=== PATIENT | female | born 1985 | race Caucasian/White ===

== ENCOUNTER → 2016-11-29 | Outpatient (CLI) | payer OTHER | END | disposition home or self-care (01) | LOC: LABWHC1 10:33 | PROVIDERS: ATTEND Obstetrics & Gynecology | DX: Z34.90 Encounter for supervision of normal pregnancy, unspecified, unspecified trimester (principal); Z3A.00 Weeks of gestation of pregnancy not specified | CPT/HCPCS: 36415; 84702 ==

== ENCOUNTER → 2016-12-02 | Outpatient (CLI) | payer OTHER | END | disposition home or self-care (01) | LOC: LABWHC1 13:02 | PROVIDERS: ATTEND Obstetrics & Gynecology | DX: Z34.90 Encounter for supervision of normal pregnancy, unspecified, unspecified trimester (principal) | CPT/HCPCS: 36415; 84702 ==

== ENCOUNTER 2016-12-29 23:13 | Emergency (ER) | payer OTHER ==
[2016-12-29] MEDS ORDERED: SODIUM CHLORIDE 0.9% 1,000 ML IV STA (23:26)
--- NOTE | 2016-12-29 23:33 | ED ---
General Adult HPI - General Chief complaint: Vaginal Bleeding Stated complaint: vaginal bleeding/miscarriage Time Seen by Provider: 12/29/16 23:21 Source: patient, RN notes reviewed Mode of arrival: ambulatory Limitations: no limitations - History of Present Illness Initial comments: 31-year-old female presents to the ER with cc of heavy vaginal bleeding. Patient states she had an US on Monday and was informed she was having a miscarriage. Today she started to have heavy bleeding. Patient states she has been going through multiple pads an hour. She contacted her OBGYN and was referred here. Patient states she may have had some mild lightheadedness. . patient states that she is not currently having any other symptoms. Patient insists mild abdominal cramping.Patient denies any recent fever, chills, shortness of breath, chest pain, back pain, nausea vomiting, numbness or tingling, dysuria or hematuria, constipation or diarrhea, headaches or visual changes, or any other current symptoms. - Related Data Home Medications Medication Instructions Recorded Confirmed Pnv,Calcium 72/Iron/Folic Acid 1 tab PO DAILY 12/29/16 12/29/16 [ Plus Tablet] Allergies Allergy/AdvReac Type Severity Reaction Status Date / Time aztreonam [From Azactam] Allergy Rash/Hives Verified 12/29/16 23:34 ciprofloxacin [From Cipro] Allergy Rash/Hives Verified 12/29/16 23:34 ciprofloxacin HCl Allergy Rash/Hives Verified 12/29/16 23:34 [From Cipro] Review of Systems ROS Statement: Those systems with pertinent positive or pertinent negative responses have been documented in the HPI. ROS Other: All systems not noted in ROS Statement are negative. 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 Eye: Pupils are equal. Ears, nose, mouth and throat: There are moist mucous membranes. Neck: The neck is supple, there is no tenderness. Cardiovascular: There is a regular rate and rhythm. No murmur, rub or gallop is appreciated. Respiratory: Lungs are clear to auscultation, respirations are non-labored, breath sounds are equal. No wheezes, stridor, rales, or rhonchi. Gastrointestinal: Soft, non-distended, non-tender abdomen without masses or organomegaly noted. There is no rebound or guarding present. No CVA tenderness. Bowel sounds are unremarkable. Back: There is no tenderness to palpation in the midline. There is no obvious deformity. No rashes noted. Musculoskeletal: Normal ROM, no tenderness, There is no pedal edema. There is no calf tenderness or swelling. Sensation intact. Pulses equal bilaterally 2+. Neurological: CN II-XII intact, There are no obvious motor or sensory deficits. Coordination appears grossly intact. Speech is normal. Skin: Skin is warm and dry and no rashes or lesions are noted. Psychiatric: Cooperative, appropriate mood & affect, normal judgment. Limitations: no limitations External exam: Present: normal external exam Speculum exam: Present: cervical discharge (some noted in the cervical hours), vaginal bleeding (minimal). Absent: erythema, vaginal discharge, foreign body, laceration Course Vital Signs 12/29/16 23:15 Temperature 97.5 F L Pulse Rate 76 Respiratory 18 Rate Blood Pressure 122/69 O2 Sat by Pulse 100 Oximetry Medical Decision Making - Medical Decision Making 31-year-old female presents emergency department with a chief complaint of abdominal cramping and vaginal bleeding in pregnancyat this time patient's pelvic exam was reviewed and patient's bleeding has light in. Patient's orthostatics are negative as well as hemoglobin is stable. This time we discussed close follow-up with OB in the morning. Discussed return parameters all patient's questions. She stated that she understood and she is here with this plan. This time she'll be discharged home. - Lab Data Result diagrams: 12/29/16 23:48 12/29/16 23:48 Lab Results 12/29/16 12/29/16 12/29/16 Range/Units 23:48 23:48 23:48 WBC 12.0 H (3.8-10.6) k/uL RBC 4.10 (3.80-5.40) m/uL Hgb 12.7 (11.4-16.0) gm/dL Hct 37.0 (34.0-46.0) % MCV 90.2 (80.0-100.0) fL MCH 31.0 (25.0-35.0) pg MCHC 34.3 (31.0-37.0) g/dL RDW 13.7 (11.5-15.5) % Plt Count 293 (150-450) k/uL Neutrophils % 60 % Lymphocytes % 33 % Monocytes % 4 % Eosinophils % 2 % Basophils % 1 % Neutrophils # 7.2 (1.3-7.7) k/uL Lymphocytes # 3.9 (1.0-4.8) k/uL Monocytes # 0.4 (0-1.0) k/uL Eosinophils # 0.2 (0-0.7) k/uL Basophils # 0.1 (0-0.2) k/uL Sodium 143 (137-145) mmol/L Potassium 3.7 (3.5-5.1) mmol/L Chloride 107 (98-107) mmol/L Carbon Dioxide 22 (22-30) mmol/L Anion Gap 14 mmol/L BUN 14 (7-17) mg/dL Creatinine 0.80 (0.52-1.04) mg/dL Est GFR (MDRD) Af Amer >60 (>60 ml/min/1.73 sqM) Est GFR (MDRD) Non-Af >60 (>60 ml/min/1.73 sqM) Glucose 102 H (74-99) mg/dL Calcium 10.0 (8.4-10.2) mg/dL Total Bilirubin 0.5 (0.2-1.3) mg/dL AST 18 (14-36) U/L ALT 27 (9-52) U/L Alkaline Phosphatase 59 (38-126) U/L Total Protein 7.5 (6.3-8.2) g/dL Albumin 4.6 (3.5-5.0) g/dL Blood Type O Positive Blood Type Recheck No Disposition Clinical Impression: Threatened miscarriage Disposition: HOME SELF-CARE Condition: Stable Instructions: Miscarriage (ED) Additional Instructions: Please use medication as discussed. Please follow up with family doctor if symptoms have not improved over the next two days. Please return to the emergency room if your symptoms increase or worsen or for any other concerns. Referrals: Damián Mckeon MD [Primary Care Provider] - 1-2 days Time of Disposition: 00:28
[2016-12-30 00:02] LABS: Basophils # (A) 0.1 k/uL (0-0.2); Basophils % (A) 1 %; CH 31.9; CHCM 35.4; Eosinophils # (A) 0.2 k/uL (0-0.7); Eosinophils % (A) 2 %; HDW 2.55; HGB 12.7 gm/dL (11.4-16.0); Luc # (Auto) 0.16; Luc % (Auto) 1; Lymphocytes # (A) 3.9 k/uL (1.0-4.8); Lymphocytes % (A) 33 %; MCHC 34.3 g/dL (31.0-37.0); MCV 90.2 fL (80.0-100.0); Mean Platelet Volume 7.4; Monocytes # (A) 0.4 k/uL (0-1.0); Monocytes % (A) 4 %; Neutrophils # (A) 7.2 k/uL (1.3-7.7); Neutrophils % (A) 60 %; RDW 13.7 % (11.5-15.5); WBC (Perox) 11.78
[2016-12-30 00:14] LABS: ALT 27 U/L (9-52); AST 18 U/L (14-36); Alkaline Phosphatase 59 U/L (38-126); Anion Gap 14 mmol/L; Blood Urea Nitrogen 14 mg/dL (7-17); Carbon Dioxide 22 mmol/L (22-30); Chloride 107 mmol/L (98-107); Glucose 102 mg/dL (74-99); Non-African American GFR(MDRD) >60 (>60 ml/min/1.73 sqM); Potassium 3.7 mmol/L (3.5-5.1); Sodium 143 mmol/L (137-145); Total Bilirubin 0.5 mg/dL (0.2-1.3); Total Protein 7.5 g/dL (6.3-8.2)
[2016-12-30 00:29] LABS: HCG,Quantitative Serum 9193.1 mIU/mL
[2016-12-30 00:57] VITALS: BP 119/58; PULSE 75; RESP 18; TEMP 97.8
== END 2016-12-30 01:00 | disposition home or self-care (01) ==
LOC: EC 23:13
DX: O20.0 Threatened abortion (principal); Z88.1 Allergy status to other antibiotic agents; Z98.890 Other specified postprocedural states; Z3A.12 12 weeks gestation of pregnancy; Z79.899 Other long term (current) drug therapy
CPT/HCPCS: 36415; 80053; 84702; 85025; 86900; 86901; 96360; 99284

== ENCOUNTER 2018-08-26 22:36 | Inpatient (IN) | payer OTHER ==
[2018-08-26] MEDS ORDERED: LACTATED RINGERS 1,000 ML IV ONE (23:59)
[2018-08-26] MEDS ORDERED: ceFAZolin IN SWFI 2 GM/20 ML SYRINGE IVP ONE (23:59)
[2018-08-26] MEDS ORDERED: CITRIC ACID-SODIUM CITRATE 15 ML CUP PO ONE (23:59)
[2018-08-27 00:08] VITALS: BMI 35.7
[2018-08-27 00:21] LABS: Basophils % (A) 0 %; Eosinophils # (A) 0.2 k/uL (0-0.7); Eosinophils % (A) 1 %; HCT 39.4 % (34.0-46.0); HGB 13.2 gm/dL (11.4-16.0); Lymphocytes # (A) 3.3 k/uL (1.0-4.8); Lymphocytes % (A) 20 %; MCH 29.7 pg (25.0-35.0); MCHC 33.6 g/dL (31.0-37.0); MCV 88.5 fL (80.0-100.0); Mean Platelet Volume 7.8; Monocytes # (A) 0.6 k/uL (0-1.0); Monocytes % (A) 4 %; Neutrophils # (A) 11.8 k/uL (1.3-7.7); Neutrophils % (A) 73 %; Platelet Count 265 k/uL (150-450); RBC 4.45 m/uL (3.80-5.40); RDW 13.7 % (11.5-15.5); WBC 16.2 k/uL (3.8-10.6)
[2018-08-27] MEDS: LACTATED RINGERS 1,000 ML IV SCH ×5 (00:27→20:01)
--- NOTE | 2018-08-27 00:35 | P.HPOB ---
History of Present Illness H&P Date: 08/27/18 Chief Complaint: Contractions, previous section 2 This patient is a pleasant 33-year-old 3 para 2 female estimated date of confinement 09/05/2018 estimated gestational age 38-5/7 weeks who presents to labor and delivery complaining of contractions since approximately 5:00 this morning. Patient's had 2 previous section scheduled for repeat later this week. care is per Dr. Jones appears to be uncomplicated. She does have a history of cellulitis otherwise uncomplicated history. 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 History of Any Multi-Drug Resistant Organisms: None Reported Past Surgical History: Section, Cholecystectomy Past Anesthesia/Blood Transfusion Reactions: No Reported Reaction Past Psychological History: No Psychological Hx Reported Smoking Status: Never smoker Past Alcohol Use History: None Reported Past Drug Use History: None Reported - Past Family History Mother Family Medical History: Diabetes Mellitus Father Family Medical History: Diabetes Mellitus Medications and Allergies Home Medications Medication Instructions Recorded Confirmed Type Pnv,Calcium 72/Iron/Folic Acid 1 tab PO DAILY 12/29/16 08/26/18 History [ Plus Tablet] Allergies Allergy/AdvReac Type Severity Reaction Status Date / Time aztreonam [From Azactam] Allergy Rash/Hives Verified 08/26/18 22:38 ciprofloxacin [From Cipro] Allergy Rash/Hives Verified 08/26/18 22:38 ciprofloxacin HCl Allergy Rash/Hives Verified 08/26/18 22:38 [From Cipro] Exam Vital Signs Temp Pulse Resp BP 08/27/18 00:02 97.4 F L 87 16 127/76 Intake and Output 08/26/18 08/26/18 08/27/18 14:59 22:59 06:59 Other: Weight 97.522 kg - OBG Physical Exam Abdomen: bowel sounds normal, no diffuse tenderness, no bruit present, no guarding noted, no hepatomegaly, no splenomegaly, no mass Vulva: both: normal Vagina: normal moisture, no discharge Cervix: no lesion, no discharge Uterus: enlarged (Patient's fundal height is consistent with dates.) Results blood work shows she is oh positive, rubella immune, RPR is nonreactive, hepatitis B is negative, group B strep was negative, ultrasounds demonstrated an EIF with negative evaluation. Result Diagrams: 08/27/18 00:15 Abnormal Lab Results - Last 24 Hours (Table) 08/27/18 Range/Units 00:15 WBC 16.2 H (3.8-10.6) k/uL Neutrophils # 11.8 H (1.3-7.7) k/uL Assessment and Plan Assessment: This is a pleasant 33-year-old 3 para 2 female 38-5/7 weeks' gestation with previous section in active labor. Patient appears quite uncomfortable therefore going to proceed with delivery at this time. Patient has discussed the surgery with Dr. Jones the office understands the risks of the surgery including risks of infection, bleeding, possible injury bowel, bladder, vessels, and/or other organs. All the patient's questions are answered and a written consent is obtained. Plan is repeat low transverse section. (1) 38 weeks gestation of Current Visit: Yes Status: Acute Code(s): Z3A.38 - 38 WEEKS GESTATION OF SNOMED Code(s): 91815111 (2) Previous delivery affecting Current Visit: Yes Status: Acute Code(s): O34.219 - MATERNAL CARE FOR UNSP TYPE SCAR FROM PREVIOUS DEL SNOMED Code(s): 241567486 (3) Normal labor Current Visit: Yes Status: Acute Code(s): O80 - ENCOUNTER FOR FULL-TERM UNCOMPLICATED DELIVERY; Z37.9 - OUTCOME OF DELIVERY, UNSPECIFIED SNOMED Code(s): 09892714
[2018-08-27] MEDS ORDERED: KETOROLAC 30 MG/ML 1 ML VIAL ONE (00:41)
[2018-08-27] MEDS ORDERED: OXYTOCIN 10 UNIT/ML 1 ML VIAL ONE (00:41)
[2018-08-27] MEDS ORDERED: NALBUPHINE 10 MG/ML (1 ML AMP) ONE (00:41)
[2018-08-27] MEDS ORDERED: ONDANSETRON 4 MG/2 ML VIAL ONE (00:41)
[2018-08-27] MEDS ORDERED: MORPHINE SULFATE (PF) 0.3 MG/0.3 ML SYR ONE (00:41)
[2018-08-27] MEDS ORDERED: NALOXONE 0.4 MG/ML 1 ML VIAL IV PRN ×2 (01:04→10:54)
[2018-08-27] MEDS ORDERED: METOCLOPRAMIDE 5 MG/ML 2 ML VIAL IVP PRN (01:23)
[2018-08-27] MEDS ORDERED: HYDROcodone/APAP 5-325MG 1 EACH TAB PO PRN (01:23)
[2018-08-27] MEDS ORDERED: SIMETHICONE 80 MG CHEWABLE PO PRN (01:23)
[2018-08-27] MEDS ORDERED: diphenhydrAMINE 25 MG CAP PO PRN (01:23)
[2018-08-27] MEDS ORDERED: diphenhydrAMINE 50 MG/ML 1 ML VIAL IVP PRN (01:23)
[2018-08-27] MEDS ORDERED: ACETAMINOPHEN TAB 325 MG TAB PO PRN (01:23)
[2018-08-27] MEDS ORDERED: KETOROLAC 30 MG/ML 1 ML VIAL IVP PRN (01:23)
[2018-08-27] MEDS ORDERED: ZOLPIDEM 5 MG TAB PO PRN (01:23)
[2018-08-27] MEDS ORDERED: ONDANSETRON 4 MG/2 ML VIAL IVP PRN (01:23)
[2018-08-27] MEDS ORDERED: OXYTOCIN 20 UNITS/1000 ML NS 1,000 ML IV SCH (01:30)
--- NOTE | 2018-08-27 01:38 | P.OP ---
Date of Procedure: 08/27/18 Preoperative Diagnosis: #1: 38-5/7 week intrauterine . #2: Previous section 2 desires repeat. #3: Active labor Postoperative Diagnosis: Same Procedure(s) Performed: Repeat low transverse section Anesthesia: spinal Surgeon: Gilbert Restrepo Inspector Technician #1: Sun Osorio Estimated Blood Loss (ml): 600 Pathology: none sent Condition: stable Disposition: floor Indications for Procedure: Please see dictated H&P for intimate details of this patient's admission. Brief summary this pleasant 33-year-old 3 para 2 female 38-5/7 weeks gestation admitted to labor and delivery with complaints of regular painful contractions found to be in early active labor. Patient's had 2 previous sections desires repeat. Patient does understand the surgery and risks including risks of infection, bleeding, possible injury bowel, bladder, vessels, and/or other organs. All the patient's questions are answered and a written consent is obtained. Operative Findings: This was a vigorous viable male Apgars were 9 and 9 delivery time was 0058 hours. Description of Procedure: This patient has a Ruano catheter placed to straight drain. She is subsequently taken to the operating room where she sat up and spinal anesthetic is administered without incident. With an adequate level of anesthesia she's placed in the supine position. She has abdominal prep and drape. Scalpels and taken the previous Pfannenstiel incision is incised. A second scalpel is taken down the fascia and the fascia scored with a knife. Fascial incision extended bilaterally using the Stubbs scissors. Fascia is then dissected sharply. Rectus muscles are and the peritoneal incision is extended incised sharply. Peritoneal incision extended superior and inferior without difficulty. Bladder blade is then placed. Scalpels and taken low transverse uterine incision is then made. Using a hemostat I enter the uterine cavity length gently and there is loss of clear fluid. 's head is then guided through the incision with fundal pressure. Mouth and nares are bulb suctioned. There is no evidence of a nuchal cord. We then have deliver the rest this 's body. This is a vigorous viable male infant Apgars 9 and 9 delivery time is 0058 hours. has spontaneous respiration and good cry. After delivery of the infant the umbilical cord is doubly clamped and cut. It appears to be trivascular. is then handed off to the nurses in attendance. The placenta is then manually extracted intact. Uterus is then externalized and the uterine incision judy cated with Dawn clamps. Uterine incision closed with 0 Vicryl running locked fashion 2 layers. Excellent hemostasis is noted. Excess fluid is removed from the abdomen and pelvis. Uterus placed back into the abdomen. Rectus muscles are reapproximated in 0 Vicryl interrupted fashion. Fascial incision is then closed using 0 PDS. Fascial incision is intact and hemostatic. Subcutaneous tissues and closed using a 3-0 Vicryl. Skin is and closed using jose maria. Sterile dressing is applied. All counts are correct 3. There are no complications. Infant and mother are taken to the birthing suite in satisfactory condition.
--- NOTE | 2018-08-27 07:12 | P.MSEPDOC ---
Presenting Problems - Arrival Data Date of Arrival on Unit: 08/27/18 Time of Arrival on Unit: 00:00 Mode of Transport: Bed - Complaint OB-Reason for Admission/Chief Complaint: Possible Onset of Labor Comment: cntrx since 499 Medical History - Information : 3 Para: 2 Term: 2 : 0 Abortions: Spontaneous or Elective: 0 Number of Living Children: 2 - Gestational Age Gestational Age by GANESH (wks/days): 38 Weeks and 5 Days - History Complications: Prior Review of Systems - Review of Systems Constitutional: No problems Breast: No problems ENT: No problems Cardiovascular: No problems Respiratory: No problems Gastrointestinal: No problems Genitourinary: No problems Musculoskeletal: No problems Neurological: No problems Skin: No problems Vital Signs - Temperature Temperature: 98.0 F Temperature Source: Temporal Artery Scan - Pulse Pulse Oximetery Pulse Rate: 80 Pulse Assessment Method: Pulse Oximetry - Respirations Respiratory Rate: 14 O2 Sat by Pulse Oximetry: 98 - Blood Pressure Sitting Blood Pressure: 110/76 Blood Pressure Mean: 87 Blood Pressure Source: Automatic Cuff Medical Screen Scoring (Pre) - Cervical Exam Dilation: 1-3 cm = 1 Membranes: Intact - Uterine Contractions Frequency: > or = 36 weeks =2 Duration: > 40 seconds = 2 Intensity: N/A - Maternal Vital Signs Maternal Temperature: N/A Maternal Blood Pressure: N/A Signs of Preeclampsia: N/A Maternal Respirations: N/A - Pain Assessment Pain Location and Character: Abdomen Pain Scale Used: Numeric (1 - 10) Pain Intensity: 10 Pain Aggravating Factors: Contractions - Assessment Baseline FHR: 140 Heart Rate - NICHD Category: Category I (Normal) = 0 NST: Reactive Position: N/A - Total Score Total Score (Pre): 5 - Level of Risk Level of Risk: Low (0-5) Physician Notification (Pre) - Physician Notified Physician Notified Date: 08/26/18 Physician Notified Time: 23:55 Physician/Practitioner Notifed:: Dr Restrepo - Notification Comment Comment: reported on pts c/o cntrx since 499, hx FTP c/s, no SVE change made, pt hurting with frequent cntrx. orders to admit, prep for c/s, he's on his way in Disposition - Disposition OB Disposition: Admit I agree with the RN Medical Screening Exam: Yes Risk & Benefit of care provided described in d/c instruction: Yes Diagnosis: RELATED CONDITIONS, UNSPECIFIED, THIRD TRIMESTER
[2018-08-27] MEDS: ceFAZolin IN SWFI 2 GM/20 ML SYRINGE IVP SCH ×2 (09:35→16:21)
[2018-08-27] MEDS: SENNOSIDES-DOCUSATE SODIUM 1 EACH TAB PO SCH ×2 (09:44→20:11)
[2018-08-27] MEDS ORDERED: ROPIVACAINE 246.25 MG, EPINEPHrine 0.5 MG, KETOROLAC 30 MG, cloNIDine HCL/PF 80 MCG, WA... MISCELLANE ONE ×5 (12:45)
[2018-08-27] MEDS: IBUPROFEN 600 MG TAB PO PRN (20:10)
[2018-08-28] MEDS: IBUPROFEN 600 MG TAB PO PRN ×2 (05:04→17:10)
--- NOTE | 2018-08-28 05:19 | P.PN ---
Progress Note - Text Progress Note Date: 08/28/18 33 yo female status post . Post-op day #1. Patient received intrathecal Duramorph. Patient was seen today, sitting up in bed no complaints, pain VAS score 0/10, no headache, no itching, no nausea and vomiting. Assessment and plan: Doing well in general no complications from anesthesia.
[2018-08-28 06:35] LABS: Basophils % (A) 0 %; Eosinophils # (A) 0.2 k/uL (0-0.7); Eosinophils % (A) 2 %; HCT 31.7 % (34.0-46.0); HGB 10.7 gm/dL (11.4-16.0); Lymphocytes # (A) 2.4 k/uL (1.0-4.8); Lymphocytes % (A) 26 %; MCHC 33.6 g/dL (31.0-37.0); MCV 89.2 fL (80.0-100.0); Mean Platelet Volume 7.5; Monocytes # (A) 0.5 k/uL (0-1.0); Monocytes % (A) 5 %; Neutrophils # (A) 6.3 k/uL (1.3-7.7); Neutrophils % (A) 67 %; Platelet Count 219 k/uL (150-450); RBC 3.56 m/uL (3.80-5.40); WBC 9.5 k/uL (3.8-10.6)
[2018-08-28] MEDS: SENNOSIDES-DOCUSATE SODIUM 1 EACH TAB PO SCH ×2 (08:06→19:52)
--- NOTE | 2018-08-28 09:55 | P.PNOBGPC ---
Subjective - Subjective Principal diagnosis: Postop day 1 Interval history: Dayana is doing very well postop day 1. She's ablating, voiding, and she is tolerating her diet. She voices no complaints. Vital signs are stable and afebrile. Patient reports: Reports appetite normal, Reports voiding normally, Reports pain well controlled, Reports ambulating normally : doing well Objective - Vital Signs Latest vital signs: Vital Signs Temp Pulse Resp BP Pulse Ox 08/28/18 07:45 97.5 F L 84 16 92/54 08/28/18 00:00 99.0 F 96 16 122/63 98 08/27/18 20:00 98.3 F 82 18 122/74 99 08/27/18 18:00 16 08/27/18 16:00 98 F 90 16 99 08/27/18 14:00 16 08/27/18 12:00 97.9 F 80 18 120/70 98 08/27/18 11:54 18 08/27/18 10:00 18 97 Intake and Output 08/27/18 08/28/18 08/28/18 22:59 06:59 14:59 Output Total 450 Balance -450 Output: Urine 450 Other: # Voids 1 1 - Exam Lungs: bilateral: normal Chest: Normal S1, Normal S2 Extremities: Present: normal Abdomen: Present: normal appearance, soft. Absent: distention, tenderness Incision: Present: normal, dry, intact Uterus: Present: normal, firm - Labs Labs: Abnormal Lab Results - Last 24 Hours (Table) 08/28/18 Range/Units 06:17 RBC 3.56 L (3.80-5.40) m/uL Hgb 10.7 L (11.4-16.0) gm/dL Hct 31.7 L (34.0-46.0) %
[2018-08-29 01:02] VITALS: RESP 16
[2018-08-29] MEDS: IBUPROFEN 600 MG TAB PO PRN ×2 (06:17→16:56)
[2018-08-29] MEDS: SENNOSIDES-DOCUSATE SODIUM 1 EACH TAB PO SCH (09:48)
[2018-08-29 15:28] VITALS: BP 126/73; PULSE 92; TEMP 98.7
--- NOTE | 2018-08-29 17:28 | P.DS ---
Providers Date of admission: 08/26/18 23:58 Expected date of discharge: 08/29/18 Attending physician: Al Gregory Primary care physician: Al Gregory Hospital Course: Dayana is doing very well postop day 2. She's ablating, voiding and she is tolerating her diet. She voices no complaints. Vital signs are stable and afebrile. Heart regular, lungs clear, extremities without pain. Abdomen soft nontender positive bowel sounds are noted. Her incision is otherwise clean dry and intact. We'll plan discharged home today and she'll follow up with me in 1 week. All other questions are answered for discharge instructions were ayaka carrington reviewed. She is stable for discharge at this time. Patient Condition at Discharge: Good Plan - Discharge Summary New Discharge Prescriptions: New Ibuprofen [Motrin] 600 mg PO Q6HR PRN #30 tab PRN Reason: Pain HYDROcodone/APAP 5-325MG [[place] 5-325] 1 tab PO Q4HR PRN #30 tab PRN Reason: Pain No Action Pnv,Calcium 72/Iron/Folic Acid [ Plus Tablet] 1 tab PO DAILY Discharge Medication List Pnv,Calcium 72/Iron/Folic Acid [ Plus Tablet] 1 tab PO DAILY 12/29/16 [History] HYDROcodone/APAP 5-325MG [[place] 5-325] 1 tab PO Q4HR PRN #30 tab 08/29/18 [Rx] Ibuprofen [Motrin] 600 mg PO Q6HR PRN #30 tab 08/29/18 [Rx] Follow up Appointment(s)/Referral(s): Al Gregory DO [Primary Care Provider] - 1 Week Activity/Diet/Wound Care/Special Instructions: No heavy lifting, surgery driving, and pelvic rest. If any high temperatures, heavy bleeding, or severe pain call my office Discharge Disposition: HOME SELF-CARE
== END 2018-08-29 17:44 | disposition home or self-care (01) | DRG 788 ==
LOC: FBPOP 22:36 → 4FBP 23:58
PROVIDERS: ADMIT Obstetrics & Gynecology; ATTEND Obstetrics & Gynecology
PROC: 10D00Z1 Extraction of Products of Conception, Low, Open Approach (ICD-10-PCS; principal; 2018-08-26)
DX: O34.211 Maternal care for low transverse scar from previous cesarean delivery (principal); Z37.0 Single live birth; Z3A.38 38 weeks gestation of pregnancy; Z83.3 Family history of diabetes mellitus; Z90.49 Acquired absence of other specified parts of digestive tract; Z88.1 Allergy status to other antibiotic agents; Z88.8 Allergy status to other drugs, medicaments and biological substances
CPT/HCPCS: 59025; 85025; 86850; 86900; 86901; 99213